=== PATIENT | female | born 1995 | race Asian ===

== ENCOUNTER 2019-04-17 18:33 | Emergency (ER) | payer OTHER ==
[~2019-04-17] VITALS: Ht 172.7 cm; Wt 81.0 kg
[2019-04-17 18:37] VITALS: BP 120/82
[2019-04-17] MEDS ORDERED: DIPH,PERTUSS(ACELL),TET VAC/PF 0.5 ML IM-VACC ONE ×2 (19:00→19:03)
[2019-04-17] MEDS ORDERED: LIDOCAINE-MPF 1%, 5ML INFIL ONE (19:00)
[2019-04-17] MEDS ORDERED: LIDOCAINE-MPF 1%, 5ML ONE (19:02)
== END 2019-04-17 20:12 | disposition home or self-care (01) ==
LOC: ED 20:06
DX: S61.011A Laceration without foreign body of right thumb without damage to nail, initial encounter (principal); W26.0XXA Contact with knife, initial encounter; Y93.89 Activity, other specified; Y92.89 Other specified places as the place of occurrence of the external cause; Y99.0 Civilian activity done for income or pay
CPT/HCPCS: 12001; 12041; 90471; 90715; 99283